=== PATIENT | female | born 1950 | race Caucasian/White ===

== ENCOUNTER 2016-08-31 07:40 | Outpatient (CLI) | payer MEDICARE, OTHER ==
[~2016-08-31] VITALS: Ht 162.6 cm; Wt 69.9 kg
[~2016-08-31 07:40] MED LIST: BUPIVACAINE 0.25% 30 ML (SENSORCAINE) VIAL ONE
[2016-08-31] MEDS ORDERED: TRIAMCINOLONE ACET (KENALOG-40) 40 MG/ML 1 ML VIAL ONE (07:41)
[2016-08-31 07:55] VITALS: BP 135/87
[2016-08-31 08:18] VITALS: BP 158/86
--- NOTE | 2016-08-31 14:04 | Pain Medicine-Procedure ---
Procedure Pre-Op/Post-Op Diagnosis Diagnosis: disc disorder with radiculopathy, lumbar Indications for Operation Low back pain Attending Surgeon Maya Procedure Date of Service: Aug 31, 2016 Procedure: Lumbar Epidural Steroid Injection at the L4-L5 level under Fluoroscopic Guidance Procedure: Patient was identified in the holding area. After risks, benefits, and alternatives were discussed with the patient, informed consent was obtained. Patient was brought to the fluoroscopy suite and placed prone on the procedure room table. A time out was performed. Vital signs were monitored throughout the procedure. The patients low back was prepped and draped in the usual sterile fashion. The patients skin was anesthetized using 2% Lidocaine. A Tuohy needle was inserted and advanced to the L4-L5 epidural space under fluoroscopic guidance using the loss of resistance technique and intermittent projection of fluoroscopy. There was no paresthesia with needle placement. The needle position was confirmed in both the AP and lateral view. After negative aspiration 2ml of contrast was injected under live fluoroscopy which showed good spread of the contrast in the epidural space at the appropriate level, there was no intravascular or subarachnoid spread. Again, after negative aspiration for heme or CSF, 2 ml of 0.25% Bupivicaine, 2ml of preservative free normal saline, and 80mg of Kenalog was injected. The needle was removed and a sterile bandage was placed and the patient was transferred to the recovery area in stable condition. After a brief period of observation, patient was discharged to home with no new neurological deficits and no apparent complications. Complications None JAY BYERS MD Aug 31, 2016 2:04 pm
== END 2016-08-31 08:22 ==
LOC: CARD 07:40
PROVIDERS: ATTEND Pain Medicine Pain Medicine
DX: M51.16 Intervertebral disc disorders with radiculopathy, lumbar region (principal); M53.3 Sacrococcygeal disorders, not elsewhere classified; Z79.899 Other long term (current) drug therapy
CPT/HCPCS: 62323

== ENCOUNTER → 2016-11-16 | Outpatient (CLI) | payer MEDICARE, OTHER ==
[~2016-11-16] VITALS: Ht 152.4 cm; Wt 70.8 kg
[~2016-11-16] MED LIST changes: +TRIAMCINOLONE ACET (KENALOG-40) 40 MG/ML 1 ML VIAL ONE
[2016-11-16 10:18] VITALS: BP 150/82
[2016-11-16 10:52] VITALS: BP 159/83
--- NOTE | 2016-11-16 12:34 | Pain Medicine-Procedure ---
Procedure Pre-Op/Post-Op Diagnosis Diagnosis: disc disorder with radiculopathy, lumbar Indications for Operation Low back pain Attending Surgeon Maya Procedure Date of Service: Nov 16, 2016 Procedure: Lumbar Epidural Steroid Injection at the L4-L5 level under Fluoroscopic Guidance Procedure: Patient was identified in the holding area. After risks, benefits, and alternatives were discussed with the patient, informed consent was obtained. Patient was brought to the fluoroscopy suite and placed prone on the procedure room table. A time out was performed. Vital signs were monitored throughout the procedure. The patients low back was prepped and draped in the usual sterile fashion. The patients skin was anesthetized using 2% Lidocaine. A Tuohy needle was inserted and advanced to the L4-L5 epidural space under fluoroscopic guidance using the loss of resistance technique and intermittent projection of fluoroscopy. There was no paresthesia with needle placement. The needle position was confirmed in both the AP and lateral view. After negative aspiration 2ml of contrast was injected under live fluoroscopy which showed good spread of the contrast in the epidural space at the appropriate level, there was no intravascular or subarachnoid spread. Again, after negative aspiration for heme or CSF, 2 ml of 0.25% Bupivicaine, 2ml of preservative free normal saline, and 80mg of Kenalog was injected. The needle was removed and a sterile bandage was placed and the patient was transferred to the recovery area in stable condition. After a brief period of observation, patient was discharged to home with no new neurological deficits and no apparent complications. Complications None JAY BYERS MD Nov 16, 2016 12:34 pm
== END ==
LOC: CARD 09:45
PROVIDERS: ATTEND Pain Medicine Pain Medicine
DX: M51.16 Intervertebral disc disorders with radiculopathy, lumbar region (principal); M53.3 Sacrococcygeal disorders, not elsewhere classified; Z79.899 Other long term (current) drug therapy
CPT/HCPCS: 62323

== ENCOUNTER → 2017-08-08 | Outpatient (CLI) | payer MEDICARE, OTHER ==
[~2017-08-08] VITALS: Ht 152.4 cm; Wt 70.8 kg
[~2017-08-08] MED LIST changes: -BUPIVACAINE 0.25% 30 ML (SENSORCAINE) VIAL ONE; -TRIAMCINOLONE ACET (KENALOG-40) 40 MG/ML 1 ML VIAL ONE; +methylPREDNISolone 80 MG/ML (DEPO MEDROL) VIAL ONE
[2017-08-08 15:44] VITALS: BP 150/80
[2017-08-08 16:11] VITALS: BP 150/77
--- NOTE | 2017-08-10 04:14 | OPERATIVE REPORT ---
DATE OF SERVICE: 08/08/2017 DIAGNOSIS: Lumbar radiculopathy. PROCEDURE: Fluoroscopic guided interlaminar epidural steroid injection. PROCEDURE IN DETAIL: After obtaining informed consent from the patient, the patient's chart was reviewed. The patient was then brought to the procedure room and placed in the prone position. A timeout was performed. The back was prepped with antiseptic solution and under fluoro guidance, the patient's lumbar spine was identified at the level of L5-S1. The L5-S1 vertebra was identified with fluoro guidance and approximately 2 mL of 1.5% lidocaine solution was used to anesthetize the skin directly down to the pedicle of the L5-S1 and under fluoroscopic guidance, the tract was anesthetized up to the interlaminar space and the ligamentum flavum. This needle was withdrawn. Then, a 20-gauge 3.5 inch Tuohy needle was then directed following the same tract that was anesthetized with the spinal needle. Using loss of resistance, the epidural space was identified and then the syringe was switched for contrast solution which was injected, approximately 1 mL. After secondary confirmation of epidural access, another syringe was placed and 80 mg of Depo-Medrol was injected. The Tuohy needle was then flushed out with approximately 2 mL of the normal saline used from the loss of resistance syringe. Band-Aids were applied to all the procedure sites. The patient tolerated the procedure well and was taken to the recovery room in stable condition. COMPLICATIONS: None. Job ID: [id number] DocumentID: [id number] Dictated Date: 08/09/2017 19:17:21 City Marshal Date: 08/10/2017 04:12:57 Dictated By: KAREEN HITCHCOCK DO
== END ==
LOC: CARD 14:38
PROVIDERS: ATTEND Pain Medicine Interventional Pain Medicine
DX: M54.12 Radiculopathy, cervical region (principal)
CPT/HCPCS: 62323

== ENCOUNTER → 2020-07-29 | Outpatient (CLI) | payer MEDICARE, OTHER | LOC: LAB FS 10:10 | PROVIDERS: ATTEND Orthopaedic Surgery | DX: Z01.812 Encounter for preprocedural laboratory examination (principal); Z20.828 Contact with and (suspected) exposure to other viral communicable diseases | CPT/HCPCS: 87635 ==

== ENCOUNTER 2020-08-13 09:12 | Emergency (ER) | payer MEDICARE, OTHER ==
[~2020-08-13] VITALS: Ht 147.3 cm; Wt 61.0 kg
[2020-08-13] MEDS ORDERED: KETOROLAC 30 MG/ML VIAL IVP STA (10:12)
[2020-08-13] MEDS ORDERED: ONDANSETRON 4 MG/2 ML (SDV) Z0FRAN IV ONE (10:15)
[2020-08-13] MEDS ORDERED: NS IV 1000 ML 1,000 ML IV SCH (10:15)
--- NOTE | 2020-08-13 10:19 | ED Respiratory ---
General Chief Complaint: Respiratory Problems Stated Complaint: LUNG PAIN; SOB Source: patient, spouse History of Present Illness Date Seen by Provider: Aug 13, 2020 Time Seen by Provider: 09:27 Initial Comments 70-year-old female presenting with complaints of not feeling well since . She had a knee surgery with Dr. Jimenez from orthopedic 4 states prior to . Then starting on she's been having nausea with some diarrhea. She was having some cough and shortness of breath. On Saturday of this week they did do a COVID swab through the [facility] clinic and found her to be positive for COVID. On , 08/11, she was started on a Z-Kt and prednisone. she continues to have some anterior chest wall pain and cough and just overall not feeling well. Today she presents to the emergency department with her and they both checked him to be evaluated. He tested positive for COVID on August 12. She states the diarrhea has improved since . Allergies and Home Medications Allergies Coded Allergies: meperidine (Unverified Adverse Reaction, Mild, hives, 08/13/20) Home Medications Ondansetron 4 Mg Tab.rapdis, 4 MG PO Q6H PRN for NAUSEA/VOMITING Prescribed by: JENNIFER JULIO on 08/13/20 1206 Prednisone 10 Mg Tab, 10 MG PO DAILY, (Reported) Patient Home Medication List Home Medication List Reviewed: Yes Review of Systems Review of Systems Constitutional: chills, fever, malaise EENTM: nose congestion Respiratory: cough Cardiovascular: chest pain (anterior chest wall pain worse with cough and deep breaths) Gastrointestinal: diarrhea, nausea Genitourinary: decreased output Musculoskeletal: no symptoms reported Skin: no symptoms reported Psychiatric/Neurological: Anxiety, Weakness (generalized) Past Actwjil-Vkvntk-Dwggbr Hx Past Med/Social Hx: Reviewed Nursing Past Med/Soc Hx Patient Social History Recent Foreign Travel: No Contact w/Someone Who Travel: No Past Medical History Surgeries: Yes Orthopedic Respiratory: No Physical Exam Vital Signs - First Documented 08/13/20 09:35 Temp 36.7 Pulse 77 Resp 24 B/P (MAP) 112/57 (75) Pulse Ox 96 O2 Delivery Room Air Capillary Refill : Height: 5'0.00" Weight: 156lbs. 0.0oz. 70.897347jz; 30.5 BMI Method: General Appearance: mild distress HEENT: PERRL/EOMI, other (dry mucous membranes) Neck: non-tender, full range of motion, supple, normal inspection Respiratory: no respiratory distress, no accessory muscle use, decreased breath sounds; No accessory muscle use, No rales, No rhonchi, No wheezing; other (tender to palpation anterior chest wall) Cardiovascular: normal peripheral pulses, regular rate, rhythm, no edema, no murmur Gastrointestinal: normal bowel sounds, soft, no pulsatile mass Extremities: normal range of motion, normal capillary refill Neurologic/Psychiatric: alert, oriented x 3 Skin: normal color, warm/dry Focused Exam Lactate Level 08/13/20 10:30: Lactic Acid Level 2.50*H Lactic Acid Level Laboratory Tests Test 08/13/20 10:30 Lactic Acid Level 2.50 MMOL/L (0.50-2.00) *H Progress/Results/Core Measures Suspected Sepsis SIRS Temperature: Pulse: Respiratory Rate: Laboratory Tests 08/13/20 10:30: White Blood Count 5.4 Blood Pressure / Mean: 08/13/20 10:30: Lactic Acid Level 2.50*H Laboratory Tests 08/13/20 10:30: Creatinine 1.19, INR Comment 1.0, Platelet Count 297, Total Bilirubin 0.3 Results/Orders Lab Results Laboratory Tests Test 08/13/20 10:30 08/13/20 11:10 Range/Units White Blood Count 5.4 4.3-11.0 10^3/uL Red Blood Count 4.57 4.35-5.85 10^6/uL Hemoglobin 13.3 11.5-16.0 G/DL Hematocrit 40 35-52 % Mean Corpuscular Volume 86 80-99 FL Mean Corpuscular Hemoglobin 29 25-34 PG Mean Corpuscular Hemoglobin Concent 34 32-36 G/DL Red Cell Distribution Width 12.3 10.0-14.5 % Platelet Count 297 130-400 10^3/uL Mean Platelet Volume 10.5 H 7.4-10.4 FL Immature Granulocyte % (Auto) 0 % Neutrophils (%) (Auto) 70 42-75 % Lymphocytes (%) (Auto) 23 12-44 % Monocytes (%) (Auto) 6 0-12 % Eosinophils (%) (Auto) 0 0-10 % Basophils (%) (Auto) 0 0-10 % Neutrophils # (Auto) 3.8 1.8-7.8 X 10^3 Lymphocytes # (Auto) 1.3 1.0-4.0 X 10^3 Monocytes # (Auto) 0.3 0.0-1.0 X 10^3 Eosinophils # (Auto) 0.0 0.0-0.3 10^3/uL Basophils # (Auto) 0.0 0.0-0.1 10^3/uL Immature Granulocyte # (Auto) 0.0 0.0-0.1 10^3/uL Prothrombin Time 13.0 12.2-14.7 SEC INR Comment 1.0 0.8-1.4 Activated Partial Thromboplast Time 32 24-35 SEC Sodium Level 137 135-145 MMOL/L Potassium Level 3.1 L 3.6-5.0 MMOL/L Chloride Level 96 L 98-107 MMOL/L Carbon Dioxide Level 28 21-32 MMOL/L Anion Gap 13 5-14 MMOL/L Blood Urea Nitrogen 32 H 7-18 MG/DL Creatinine 1.19 0.60-1.30 MG/DL Estimat Glomerular Filtration Rate 45 BUN/Creatinine Ratio 27 Glucose Level 96 70-105 MG/DL Lactic Acid Level 2.50 *H 0.50-2.00 MMOL/L Calcium Level 8.9 8.5-10.1 MG/DL Corrected Calcium 9.1 8.5-10.1 MG/DL Total Bilirubin 0.3 0.1-1.0 MG/DL Aspartate Amino Transf (AST/SGOT) 33 5-34 U/L Alanine Aminotransferase (ALT/SGPT) 23 0-55 U/L Alkaline Phosphatase 70 40-136 U/L Troponin I < 0.30 <0.30 NG/ML C-Reactive Protein 0.19 <0.50 MG/DL Total Protein 6.6 6.4-8.2 GM/DL Albumin 3.8 3.2-4.5 GM/DL Lipase 141 H 8-78 U/L Urine Color YELLOW Urine Clarity CLEAR Urine pH 6.0 5-9 Urine Specific Brilliant 1.010 L 1.016-1.022 Urine Protein NEGATIVE NEGATIVE Urine Glucose (UA) NEGATIVE NEGATIVE Urine Ketones NEGATIVE NEGATIVE Urine Nitrite NEGATIVE NEGATIVE Urine Bilirubin NEGATIVE NEGATIVE Urine Urobilinogen 0.2 < = 1.0 MG/DL Urine Leukocyte Esterase NEGATIVE NEGATIVE Urine RBC (Auto) NEGATIVE NEGATIVE Urine RBC NONE /HPF Urine WBC 0-2 /HPF Urine Squamous Epithelial Cells RARE /HPF Urine Crystals NONE /LPF Urine Bacteria TRACE /HPF Urine Casts PRESENT /LPF Urine Hyaline Casts RARE /LPF Urine Mucus NEGATIVE /LPF Urine Culture Indicated NO My Orders Orders - JENNIFER JULIO MD Cbc With Automated Diff (08/13/20 10:12) Comprehensive Metabolic Panel (08/13/20 10:12) Crp Fs (08/13/20 10:12) Troponin I Fs (08/13/20 10:12) Lactic Acid Analyzer (08/13/20 10:12) Protime With Inr (08/13/20 10:12) Partial Thromboplastin Time (08/13/20 10:12) Ekg Tracing (08/13/20 10:12) Ns Iv 1000 Ml (Sodium Chloride 0.9%) (08/13/20 10:15) Ondansetron Injection (Zofran Injectio (08/13/20 10:15) Lipase (08/13/20 10:12) Ua Culture If Indicated (08/13/20 10:12) Ketorolac Injection (Toradol Injection) (08/13/20 10:12) Chest 1 View Ap/Pa Only (08/13/20 10:14) Medications Given in ED Current Medications Medications Dose Ordered Sig/Avinash Route Start Time Stop Time Status Last Admin Dose Admin Ondansetron HCl 4 mg ONCE ONCE IV 08/13/20 10:15 08/13/20 10:16 DC 08/13/20 10:40 4 MG Vital Signs/I&O 08/13/20 08/13/20 08/13/20 08/13/20 09:35 10:05 10:35 11:05 Temp 36.7 36.7 Pulse 77 74 68 69 Resp 24 22 22 22 B/P (MAP) 112/57 (75) 107/65 124/62 113/61 Pulse Ox 96 95 96 96 O2 Delivery Room Air Room Air Room Air Room Air 08/13/20 08/13/20 12:25 12:25 Temp 36.8 36.8 Pulse 75 75 Resp 22 22 B/P (MAP) 124/64 124/64 (75) Pulse Ox 96 96 O2 Delivery Room Air Room Air Capillary Refill : Progress Note #1: Progress Note Check labs, CXR, ECG and troponin. Give IVF 1 L NS for hydration, Zofran 4 mg IV for nausea, Toradol 15 mg IV for chest wall pain Progress Note #2: Progress Note labs show mildly elevated lactic acid to 2.5 and her creatinine is slightly up with the GFR of 45. All of these would go along with her being dehydrated and not drinking well. Her CBC was normal without acute elevation of her white count. Her chemistry otherwise showed mild hypokalemia with a potassium of 3.1. Her troponin was 0. Her electrocardiogram did not show any acute significant abnormality. Her chest x-ray showed mild right lower lobe infiltrate. This could be from a bacterial source or related back to her COVID infection. Since her oxygen saturation is 96-98% on room air and she is already prescribed steroid and Zithromax will have her continue those medications. Encourage fluids and electrolyte drinks at home. Advised to follow-up through the clinic for continued concerns and problems. ECG Initial ECG Impression Date: Aug 13, 2020 Initial ECG Impression Time: 10:28 Initial ECG Rate: 68 Initial ECG Rhythm: Normal Sinus Initial ECG Comparisson: No Previous ECG Available Comment normal sinus rhythm with a heart rate is 68 beats for minute. [place] interval 162 ms. QT interval 392 ms with a QTc interval 417 ms. There is no acute ST elevation. There is no prior tracing available for comparison. Diagnostic Imaging Diagonstic Imaging: Xray Plain Films/CT/US/NM/MRI: chest Comments [facility]. [place], [place] NAME: MELANIE ORDONEZ [facility] REC#: [id number] PT STATUS: REG ER : 1950 PHYSICIAN: JENNIFER JULIO MD ADMIT DATE: 08/13/20/ER FS Draft Date of Exam:08/13/20 CHEST 1 VIEW AP/PA ONLY INDICATION: Covid positive and increasing symptoms. Time of exam 10:45 a.m. No prior studies are available for comparison. Heart size is normal. There may be minimal patchy infiltrate in the right base. Otherwise lungs are clear. There is no effusion or pneumothorax. IMPRESSION: Minimal patchy right basilar infiltrate. Dictated on workstation # [id number] Dict: 08/13/20 1058 Trans: 08/13/20 1112 [facility] [id number] Interpreted by: KRISS CHRISTIE MD Electronically signed by: Departure Impression Primary Impression: Dehydration Additional Impressions: COVID-19 virus infection Nausea alone Disposition: 01 HOME, SELF-CARE Condition: Stable Departure-Patient Inst. Decision time for Depature: 12:06 Referrals: IKE KELLY MD (PCP/Family) Primary Care Physician Patient Instructions: Coronavirus Disease 2019 (COVID-19) ED, Nausea and Vomiting, Adult ED, Dehydration, Adult ED Add. Discharge Instructions: Stay well hydrated and drink plenty of water or electrolyte drinks to help with your hydration and body aches and shaking. Finish the antibiotics and steroids to help with your symptoms. Check with clinic for continued problems. All discharge instructions reviewed with patient and/or family. Voiced understanding. Scripts Ondansetron (Ondansetron Odt) 4 Mg Tab.rapdis 4 MG PO Q6H PRN for NAUSEA/VOMITING for 5 Days, #20 TAB 0 Refills Prov: JENNIFER JULIO MD 08/13/20 JENNIFER JULIO MD Aug 13, 2020 10:19
[2020-08-13] MEDS ORDERED: MELO15TA39 (10:22)
[2020-08-13] MEDS ORDERED: OXYC-471 (10:22)
[2020-08-13] MEDS ORDERED: LEVO100T7 (10:22)
[2020-08-13] MEDS ORDERED: azithromycin (10:22)
[2020-08-13] MEDS ORDERED: TRIA1TAB3 (10:22)
[2020-08-13] MEDS ORDERED: PRD10T PO (10:22)
[2020-08-13] MEDS ORDERED: ONDA4TAB11 (10:22)
[2020-08-13 10:44] LABS: WHITE BLOOD COUNT 5.4 10^3/uL (4.3-11.0)
[2020-08-13 10:45] LABS: BASOPHILS % (AUTO) 0 % (0-10); EOSINOPHILS % (AUTO) 0 % (0-10); HEMATOCRIT 40 % (35-52); HEMOGLOBIN 13.3 G/DL (11.5-16.0); LYMPHOCYTES # (AUTO) 1.3 X 10^3 (1.0-4.0); LYMPHOCYTES % (AUTO) 23 % (12-44); MEAN CORPUSCULAR HEMOGLOBIN 29 PG (25-34); MEAN CORPUSCULAR HGB CONC 34 G/DL (32-36); MEAN CORPUSCULAR VOLUME 86 FL (80-99); MEAN PLATELET VOLUME 10.5 FL (7.4-10.4); MONOCYTES # (AUTO) 0.3 X 10^3 (0.0-1.0); MONOCYTES % (AUTO) 6 % (0-12); NEUTROPHILS # (AUTO) 3.8 X 10^3 (1.8-7.8); NEUTROPHILS % (AUTO) 70 % (42-75); PLATELET COUNT 297 10^3/uL (130-400)
--- NOTE | 2020-08-13 11:13 | Diagnostic Imaging Report ---
INDICATION: Covid positive and increasing symptoms. Time of exam 10:45 a.m. No prior studies are available for comparison. Heart size is normal. There may be minimal patchy infiltrate in the right base. Otherwise lungs are clear. There is no effusion or pneumothorax. IMPRESSION: Minimal patchy right basilar infiltrate. Dictated by: Dictated on workstation # [id number]
[2020-08-13 11:24] LABS: CLARITY,URINE CLEAR; COLOR,URINE YELLOW; GLUCOSE, URINE (UA) NEGATIVE (NEGATIVE); PROTEIN,URINE NEGATIVE (NEGATIVE)
[2020-08-13 11:25] LABS: BACTERIA,URINE TRACE /HPF; BILIRUBIN,URINE NEGATIVE (NEGATIVE); HYALINE CASTS, URINE RARE /LPF; KETONES,URINE NEGATIVE (NEGATIVE); LEUKOCYTE ESTERASE ,URINE NEGATIVE (NEGATIVE); NITRITE,URINE NEGATIVE (NEGATIVE); SQUAMOUS EPITHELIAL CELL,UR RARE /HPF; WBC,URINE 0-2 /HPF
[2020-08-13 11:33] LABS: ALANINE AMINOTRANSFERASE 23 U/L (0-55); ALKALINE PHOSPHATASE 70 U/L (40-136); BILIRUBIN,TOTAL 0.3 MG/DL (0.1-1.0); BUN/CREATININE RATIO 27; CALCIUM 8.9 MG/DL (8.5-10.1); CARBON DIOXIDE 28 MMOL/L (21-32); CHLORIDE 96 MMOL/L (98-107); CREATININE SERUM 1.19 MG/DL (0.60-1.30); GFR ESTIMATED 45; GLUCOSE 96 MG/DL (70-105); POTASSIUM 3.1 MMOL/L (3.6-5.0); SODIUM 137 MMOL/L (135-145); TOTAL PROTEIN 6.6 GM/DL (6.4-8.2)
[2020-08-13 11:34] LABS: ALBUMIN 3.8 GM/DL (3.2-4.5); LIPASE 141 U/L (8-78)
[2020-08-13] MEDS ORDERED: ONDA4TAB11 PO (12:06)
[2020-08-13 12:25] VITALS: BP 124/64
== END 2020-08-13 12:25 | disposition home or self-care (01) ==
LOC: EDUNIT# 09:12 → ER FS 09:15
DX: U07.1 COVID-19 (principal); E86.0 Dehydration; R11.0 Nausea; F41.9 Anxiety disorder, unspecified; Z88.5 Allergy status to narcotic agent; Z79.52 Long term (current) use of systemic steroids
CPT/HCPCS: 36415; 71045; 80053; 81000; 83605; 83690; 84484; 85025; 85610; 85730; 86141; 93005

== ENCOUNTER → 2020-08-18 | Outpatient (CLI) | payer MEDICARE, OTHER ==
[~2020-08-18] MED LIST changes: +LEVO100T7; +MELO15TA39; +ONDA4TAB11; +ONDA4TAB11 PO; +OXYC-471; +PRD10T PO; +TRIA1TAB3; +azithromycin; -methylPREDNISolone 80 MG/ML (DEPO MEDROL) VIAL ONE
--- NOTE | 2020-08-18 16:36 | Diagnostic Imaging Report ---
INDICATION: Covid infection. PA and lateral chest obtained at 04:16 p.m. and compared to 08/13/2020. Heart and mediastinal silhouette are normal in appearance. There is some mild patchy infiltrate in the right lung base which appears worse when compared to the prior study. There is some minimal infiltrate in the left base which is unchanged. There is no pneumothorax or pleural fluid. IMPRESSION: Mild patchy infiltrate in the right lung base, increased however compared to 08/13/2020. There is some minimal infiltrate in the left base which appears unchanged. Dictated by: Dictated on workstation # [id number]
== END ==
LOC: RAD FS 16:07
PROVIDERS: ATTEND Family Medicine
DX: U07.1 COVID-19 (principal); R91.8 Other nonspecific abnormal finding of lung field
CPT/HCPCS: 71046

== ENCOUNTER 2022-02-20 08:33 | Emergency (ER) | payer MEDICARE, OTHER ==
[~2022-02-20] VITALS: Ht 152.4 cm; Wt 61.2 kg
[~2022-02-20 08:33] MED LIST changes: -OXYC-471; +OXYC1TAB11
--- NOTE | 2022-02-20 09:09 | ED Cough/URI ---
General Chief Complaint: COVID19 Suspect/Confirmed Stated Complaint: COUGH; COVID EXPOSURE Nursing Triage Note: PT AMBULATE TO ROOM FS02 WITHOUT DIFFICULTY WITH C/O COUGH, HEADACHE, FEVER, AND BODY ACHES. PT REPORTS HER TESTED COVID POS ON SATURDAY. PT REPORTS TAKING TYLENOL AND MUCINEX LAST NIGHT BUT NOTHING TODAY. Source: patient Exam Limitations: no limitations History of Present Illness Date Seen by Provider: Feb 20, 2022 Time Seen by Provider: 08:30 Initial Comments Patient is a 72-year-old female who with home exposure to COVID who presents with nonproductive cough headache, body aches chills and tactile fever. Patient symptoms began 2 days ago after her tested positive for COVID 4 days ago. Patient is treated herself with Tylenol and Mucinex with limited relief. No nausea vomiting or sweats. She denies chest pain palpitation shortness of breath. No history of asthma COPD or congestive heart failure. No other acute symptoms or complaints. Patient has been diagnosed with COVID and received COVID vaccination and booster Timing/Duration: yesterday, getting worse Prior Episodes/Possible Cause: other Modifying Factors: Improves With Other Associated Symptoms: other Allergies and Home Medications Allergies Coded Allergies: meperidine (Unverified Adverse Reaction, Mild, hives, 08/13/20) Patient Home Medication List Home Medication List Reviewed: No Levothyroxine Sodium (Levothyroxine Sodium) 100 Mcg Tablet, (Reported) Entered as Reported by: ANAHI URENA on 08/13/20 1022 Meloxicam (Meloxicam) 15 Mg Tablet, (Reported) Entered as Reported by: ANAHI URENA on 08/13/20 1022 Ondansetron (Ondansetron Odt) 4 Mg Tab.rapdis, (Reported) Entered as Reported by: ANAHI URENA on 08/13/20 1022 Ondansetron (Ondansetron Odt) 4 Mg Tab.rapdis, 4 MG PO Q6H PRN for NAUSEA /VOMITING Prescribed by: JENNFIER JULIO on 08/13/20 1206 Oxycodone HCl/Acetaminophen (Oxycodone-Acetaminophen 5-325) 1 Each Tablet, (Reported) Entered as Reported by: ANAHI URENA on 08/13/20 1022 Prednisone (Prednisone) 10 Mg Tab, 10 MG PO DAILY, (Reported) Entered as Reported by: ANAHI URENA on 08/13/20 1022 Triamterene/Hydrochlorothiazid (Triamterene-Hctz 37.5-25 mg Tb) 1 Each Tablet, (Reported) Entered as Reported by: ANAHI URENA on 08/13/20 1022 [azithromycin] , (Reported) Entered as Reported by: ANAHI URENA on 08/13/20 1022 Review of Systems Review of Systems Constitutional: see HPI EENTM: see HPI Respiratory: see HPI Cardiovascular: see HPI Gastrointestinal: see HPI Genitourinary: see HPI Musculoskeletal: see HPI Skin: see HPI Psychiatric/Neurological: See HPI Hematologic/Lymphatic: See HPI Immunological/Allergic: see HPI All Other Systems Reviewed Negative Unless Noted: No Past Ofoohin-Qulyzv-Jolrch Hx Patient Social History Tobacco Use?: No Smoking Status: Never a Smoker Smokeless Tobacco Frequency: Never a User Use of E-Cig and/or Vaping dev: No Use of E-Cig and/or Vaping Sushant: Never a User Substance use?: No Alcohol Use?: No Pt feels they are or have been: No Immunizations Up To Date COVID19 Vaccine Dyer And Washer: MODERNA Seasonal Allergies Seasonal Allergies: No Past Medical History Surgeries: Yes Orthopedic Respiratory: No Cardiac: Yes Hypertension Neurological: No CURATORIAL SPECIALIST History: Hysterectomy Genitourinary: No Gastrointestinal: No Musculoskeletal: Yes (Osteoarthritis) Arthritis Endocrine: No HEENT: No Cancer: No Psychosocial: No Integumentary: No Blood Disorders: No Physical Exam Vital Signs - First Documented 02/20/22 08:36 Temp 37.6 Pulse 92 Resp 16 B/P (MAP) 143/75 (97) O2 Delivery Room Air Capillary Refill : Less Than 3 Seconds Height: 5'0.00" Weight: 156lbs. 0.0oz. 70.537181cm; 26.00 BMI Method: General Appearance: WD/WN, no apparent distress Eyes: Bilateral Eye Normal Inspection, Bilateral Eye PERRL, Bilateral Eye EOMI HEENT: PERRL/EOMI, normal ENT inspection Neck: non-tender, full range of motion, supple Respiratory: chest non-tender, rhonchi Cardiovascular: normal peripheral pulses, regular rate, rhythm Gastrointestinal: non tender, soft Extremities: normal range of motion, non-tender Neurologic/Psychiatric: alert, oriented x 3 Skin: normal color Focused Exam Sepsis Stage: Ruled Out Progress/Results/Core Measures Suspected Sepsis SIRS Temperature: Pulse: 92 Respiratory Rate: 16 Blood Pressure 143 /75 Mean: 97 Results/Orders My Orders Orders - ASHIA HAMEED DO Covid 19 Inhouse Test (02/20/22 08:56) Influenza A And B By Pcr (02/20/22 08:56) Isolation Central Supply Req (02/20/22 08:56) Vital Signs/I&O 02/20/22 02/20/22 08:36 08:36 Temp 37.6 Pulse 92 Resp 16 B/P (MAP) 143/75 (97) O2 Delivery Room Air Room Air Capillary Refill : Less Than 3 Seconds Blood Pressure Mean: 97 Departure Communication (Admissions) Patient with predominantly URI type symptoms with coarse nonproductive cough. Currently no evidence of respiratory compromise. Recommendations for therapeutic supportive care with close monitoring and PCP follow-up. Return precautions reviewed. Patient verbalizes understanding agreement discharge instructions prior to departure Impression Primary Impression: COVID-19 virus infection Disposition: 01 HOME, SELF-CARE Condition: Stable Departure-Patient Inst. Decision time for Depature: 09:09 Referrals: IKE KELLY MD (PCP) Primary Care Physician Patient Instructions: COVID-19 Home Care/Discharge Add. Discharge Instructions: You were evaluated in the emergency department for body aches headache chills sweats and productive cough. Your exam and findings are consistent with COVID. Please take newly prescribed medications as directed and continue to self quarantine at home. Follow-up with your PCP in 5 to 7 days for reevaluation. Return to the ED if new or worsening symptoms. All discharge instructions reviewed with patient and/or family. Voiced understanding. Scripts Albuterol Sulfate (Proventil Hfa) 6.7 Gm Hfa.aer.ad 2 PUFF INH Q6H for SHORTNESS OF BREATH, #1 EACH Prov: ASHIA HAMEED 02/20/22 Benzonatate (TESSALON PERLES) 100 Mg Capsule 200 MG PO BID, #20 CAP Prov: ASHIA HAMEED 02/20/22 Azithromycin (Zithromax) 250 Mg Tablet 250 MG PO UD, #6 TAB TAKE 2 TABLETS TODAY, THEN TAKE 1 TABLET DAILY FOR 4 MORE DAYS Prov: ASHIA HAMEED 02/20/22 Prednisone (Prednisone) 20 Mg Tab 40 MG PO DAILY, #6 TAB 0 Refills Prov: ASHIA HAMEED DO 02/20/22 ASHIA HAMEED DO Feb 20, 2022 09:09
[2022-02-20] MEDS ORDERED: PRD20T PO (09:11)
[2022-02-20] MEDS ORDERED: BENZ100C18 PO (09:11)
[2022-02-20] MEDS ORDERED: RT-ALBUINH INH (09:11)
[2022-02-20] MEDS ORDERED: AZIT250T PO (09:11)
[2022-02-20 09:32] VITALS: BP 134/72
== END 2022-02-20 09:32 | disposition home or self-care (01) ==
LOC: EDUNIT# 08:33 → ER FS 08:35
DX: U07.1 COVID-19 (principal)
CPT/HCPCS: 87636; 99283

== ENCOUNTER 2022-06-12 19:24 | Emergency (ER) | payer MEDICARE ==
[~2022-06-12] VITALS: Ht 152 cm; Wt 63.0 kg
[~2022-06-12 19:24] MED LIST changes: +AZIT250T PO; +BENZ100C18 PO; +PRD20T PO; +RT-ALBUINH INH
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
[2022-06-12 21:19] VITALS: BP 151/88
== END 2022-06-12 21:19 | disposition home or self-care (01) ==
LOC: ER FS 19:24 → EDUNIT# 19:24 → ER FS 21:19
DX: S01.01XA Laceration without foreign body of scalp, initial encounter (principal); W18.39XA Other fall on same level, initial encounter; W22.8XXA Striking against or struck by other objects, initial encounter
CPT/HCPCS: 12001; 70450

== ENCOUNTER 2022-06-21 13:13 | Emergency (ER) | payer MEDICARE ==
[2022-06-21 13:15] VITALS: BP 124/68
== END 2022-06-21 13:30 | disposition home or self-care (01) ==
LOC: EDUNIT# 13:13 → ER FS 13:14
DX: S01.01XD Laceration without foreign body of scalp, subsequent encounter (principal); X58.XXXD Exposure to other specified factors, subsequent encounter

== ENCOUNTER 2023-06-21 19:47 | Emergency (ER) | payer OTHER, MEDICARE ==
[2023-06-21 19:53] VITALS: BP 145/87
[2023-06-21] MEDS ORDERED: ACETAMINOPHEN 325 MG TABLET PO STA (20:04)
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
== END 2023-06-21 21:20 | disposition home or self-care (01) ==
LOC: EDUNIT# 19:47 → ER FS 19:48
DX: S09.90XA Unspecified injury of head, initial encounter (principal); S16.1XXA Strain of muscle, fascia and tendon at neck level, initial encounter; S20.219A Contusion of unspecified front wall of thorax, initial encounter; V49.40XA Driver injured in collision with unspecified motor vehicles in traffic accident, initial encounter; Y92.410 Unspecified street and highway as the place of occurrence of the external cause
CPT/HCPCS: 70450; 71250; 72125